=== PATIENT | female | born 1945 | race Caucasian/White ===

== ENCOUNTER 2019-12-10 18:00 | Emergency (ER) | payer MEDICARE ==
[~2019-12-10] VITALS: Ht 165.1 cm; Wt 61.3 kg
[~2019-12-10 18:00] MED LIST: AMOX125S17 PO; CHOL400C PO; FENO43CA5 PO; GLUC1CAP57 PO; HYDR-3164 PO; METH4TAB6 PO; OXYC1TAB19 PO; PRED20TA PO; PYRI25TA2 PO
[2019-12-10 18:48] LABS: BILIRUBIN,URINE NEGATIVE (NEG); CLARITY,URINE CLEAR; COLOR,URINE YELLOW; NITRITE,URINE NEGATIVE (NEG); PROTEIN,URINE NEGATIVE (NEG-TRACE); UROBILINOGEN,URINE 0.2 mg/dL (0.2 mg/dL)
[2019-12-10 18:53] LABS: HYALINE CASTS, URINE FEW /HPF
[2019-12-10 18:56] LABS: RBC,URINE 0 /HPF (0-2); WBC,URINE 0 /HPF (0-4)
[2019-12-10 18:57] LABS: BACTERIA,URINE FEW /HPF (0-FEW)
[2019-12-10 19:08] LABS: BASO # 0.1 x10^3/uL (0.0-0.2); BASO % 1 % (0-3); EOS # 0.3 x10^3/uL (0.0-0.7); EOS % 5 % (0-3); HEMATOCRIT 45.1 % (36.0-47.0); HEMOGLOBIN 15.5 g/dL (12.0-15.5); LYMPH # 1.1 x10^3/uL (1.0-4.8); LYMPH % 16 % (24-48); MEAN CORPUSCULAR HEMOGLOBIN 32 pg (25-35); MEAN CORPUSCULAR HGB CONC 34 g/dL (31-37); MEAN CORPUSCULAR VOLUME 93 fL (79-100); MONO # 0.8 x10^3/uL (0.0-1.1); MONO % 11 % (0-9); NEUT # 4.8 x10^3/uL (1.8-7.7); NEUT % 68 % (31-73); PLATELET COUNT 540 x10^3/uL (140-400); RED BLOOD COUNT 4.83 x10^6/uL (3.50-5.40); RED CELL DISTRIBUTION WIDTH 13.2 % (11.5-14.5); WHITE BLOOD COUNT 7.1 x10^3/uL (4.0-11.0)
[2019-12-10 19:16] LABS: CALCIUM 9.4 mg/dL (8.5-10.1); CREATININE 0.7 mg/dL (0.6-1.0); POTASSIUM 3.7 mmol/L (3.5-5.1)
[2019-12-10 19:18] LABS: PROTHROMBIN TIME PATIENT 13.4 SEC (11.7-14.0)
[2019-12-10 19:22] LABS: ALBUMIN 3.1 g/dL (3.4-5.0); DIRECT BILIRUBIN 0.1 mg/dL (0.0-0.2); TOTAL BILIRUBIN 0.3 mg/dL (0.2-1.0); TOTAL PROTEIN 5.9 g/dL (6.4-8.2)
[2019-12-10] MEDS ORDERED: IOHEXOL 300 MG/ML 100ML VIAL. IV ONE (19:30)
[2019-12-10 19:32] LABS: % BANDS 3 % (0-9); % EOS 5 % (0-5); % LYMPHS 21 % (24-48); % MONOS 9 % (0-10); % SEGS 62 % (35-66); PLT ESTIMATE INCREASED (ADEQUATE); TOXIC GRANULATION MOD
[2019-12-10] MEDS ORDERED: CONTRAST GIVEN. MC PRN (19:45)
--- NOTE | 2019-12-10 19:48 | RAD ---
Study: CR PORTABLE CHEST 1V Indication: Chest tightness. Comparison: 04/01/2015 Findings: The cardiomediastinal silhouette is within normal limits for size. Aortic vascular calcifications. Unremarkable [place]. No pneumothorax, lobar consolidation or layering effusion. Chronic rib fractures seen on the left. Osteopenia and scattered degenerative changes. Impression: No acute radiographic abnormality of the chest. Electronically signed by: MARY VALVERDE MD (12/10/2019 7:45 PM) [id number]
--- NOTE | 2019-12-10 19:53 | RAD ---
PQRS Compliance Statement: One or more of the following individualized dose reduction techniques were utilized for this examination: 1. Automated exposure control 2. Adjustment of the mA and/or kV according to patient size 3. Use of iterative reconstruction technique CT ABD PELV W/ IV CONTRST ONLY Clinical Indication: Reason: back pain and abd pain / Spl. Instructions: / History: Comparison: CT abdomen and pelvis with contrast October 19, 2018. Technique: Helical CT imaging of the abdomen and pelvis is performed after 75 cc of Omnipaque 300 IV contrast. Oral contrast not administered. Findings: Stable 5 mm nodule in the right lower lobe, therefore considered benign. Linear scarring in the posterior right lower lobe and lingula, unchanged. Cardiac size normal. The liver, gallbladder, spleen, adrenal glands, abdominal aorta caliber, and kidneys are normal. There is moderate inflammation and fluid surrounding the pancreas. Some of this process is seen inferior to the pancreas body/head junction. This process also extends cephalad to the periceliac region. No organized fluid collection is seen. The pancreas is homogeneous. No obvious abnormality of the stomach. Periumbilical ventral hernia mesh. No dilated small bowel. There is no colon wall thickening. The appendix is normal. There is tiny metallic density adjacent to the proximal colon, likely incidental. Urinary bladder is not well distended, otherwise normal. The uterus is atrophic. Prominent enhancing left gonadal vein, similar to prior study. No pelvic free fluid. Small fat-containing left inguinal hernia. No acute bone abnormality. IMPRESSION: Moderate acute pancreatitis. No pancreatic pseudocyst or evidence of necrosis. Electronically signed by: Marcellus Keller MD (12/10/2019 7:50 PM) [facility]
[2019-12-10] MEDS ORDERED: IV NORMAL SALINE 1000ML BAG 1,000 ML IV ONE ×2 (20:00→21:30)
--- NOTE | 2019-12-10 20:11 | PHYS DOC ---
Past Medical History Past Medical History: High Cholesterol, Hypertension, Pancreatitis Past Surgical History: Tubal ligation Smoking Status: Current Every Day Smoker Alcohol Use: Heavy Additional Information: sober for 1 week. Drug Use: None General Adult EDM: Chief Complaint: MULTIPLE COMPLAINTS HPI: HPI: 74-year-old female past medical history of tobacco dependence, HLD, and HTN , presents to the ED after nurse from Dr. Gutierrez's office referred her here for "a second test." Patient states she saw Dr. Gutierrez on Sunday with complaints of left-sided chest tightness, belly, stomach and back pain that she has been experiencing for the past 2 weeks. No relief with ice packs. Patient states she gave a urine sample - cannot recall any further labs or imaging studies, pt is a very poor historian. States she takes medications but doesn't know what for. Reports chronic history of alcohol abuse daily. Complains of no appetite and constipation. Had a bowel movement on Sunday that was normal brown color. Review of Systems: Review of Systems: Constitutional: Denies fever or chills. [] Eyes: Denies change in visual acuity. [] HENT: Denies nasal congestion or sore throat. [] Respiratory: Denies cough or shortness of breath. [] Or hematuria Cardiovascular: Denies syncope or edema. [] GI: Denies melena, hematochezia, hematemesis, nausea, vomiting, bloody stools or diarrhea. [] : Denies dysuria. [] Or hematuria Musculoskeletal: Denies saddle anesthesia or joint pain. [] Integument: Denies rash. [] Neurologic: Denies headache, focal weakness or sensory changes. [] Endocrine: Denies polyuria or polydipsia. [] Lymphatic: Denies swollen glands. [] Psychiatric: Denies depression or anxiety. [] Heart Score: Risk Factors: Risk Factors: DM, Current or recent (<one month) smoker, HTN, HLP, family histo ry of CAD, obesity. Risk Scores: Score 0 - 3: 2.5% MACE over next 6 weeks - Discharge Home Score 4 - 6: 20.3% MACE over next 6 weeks - Admit for Clinical Observation Score 7 - 10: 72.7% MACE over next 6 weeks - Early Invasive Strategies Current Medications: Current Medications Medications (Trade) Dose Ordered Sig/Libby Start Time Stop Time Status Last Admin Dose Admin Info (CONTRAST GIVEN -- Rx MONITORING) 1 each PRN DAILY PRN 12/10/19 19:45 12/12/19 19:44 Iohexol (Omnipaque 300 Mg/ml) 75 ml 1X ONCE 12/10/19 19:30 12/10/19 19:31 DC 12/10/19 19:30 75 ML Sodium Chloride 1,000 ml @ 1,000 mls/hr 1X ONCE 12/10/19 20:00 12/10/19 20:59 12/10/19 19:55 1,000 MLS/HR Allergies: Allergies: Allergies Coded Allergies Type Severity Reaction Last Updated Verified No Known Drug Allergies 01/22/16 No Physical Exam: PE: Constitutional: Well developed, well nourished, no acute distress, non-toxic appearance. [] HENT: Normocephalic, atraumatic, bilateral external ears normal, oropharynx moist, no oral exudates, nose normal. [] Eyes: , EOMI, conjunctiva normal, no discharge. [] Neck: Normal range of motion, no tenderness, supple, no stridor. [] Cardiovascular:Heart rate regular rhythm, no murmur [] Lungs & Thorax: Bilateral breath sounds clear to auscultation [] Abdomen: +eigastric ttp, Bowel sounds normal, soft, no masses, no pulsatile mas ses. [] Skin: Warm, dry, no erythema, no rash. [] Back: No tenderness, Extremities: No tenderness, no cyanosis, no clubbing, ROM intact, no edema. [] Neurologic: Alert and oriented X 3, normal motor function, normal sensory function, no focal deficits noted. [] Psychologic: Affect normal, judgement normal, mood normal. [] Current Patient Data: Labs: Laboratory Tests Test 12/10/19 18:17 12/10/19 18:57 Urine Collection Type Unknown Urine Color Yellow Urine Clarity Clear Urine pH 6.0 (<5.0-8.0) Urine Specific [place] 1.025 (1.000-1.030) Urine Protein Negative mg/dL (NEG-TRACE) Urine Glucose (UA) Negative mg/dL (NEG) Urine Ketones (Stick) Negative mg/dL (NEG) Urine Blood Negative (NEG) Urine Nitrite Negative (NEG) Urine Bilirubin Negative (NEG) Urine Urobilinogen Dipstick 0.2 mg/dL (0.2 mg/dL) Urine Leukocyte Esterase Negative (NEG) Urine RBC 0 /HPF (0-2) Urine WBC 0 /HPF (0-4) Urine Squamous Epithelial Cells Mod /LPF Urine Bacteria Few /HPF (0-FEW) Urine Hyaline Casts Few /HPF Urine Mucus Marked /LPF White Blood Count 7.1 x10^3/uL (4.0-11.0) Red Blood Count 4.83 x10^6/uL (3.50-5.40) Hemoglobin 15.5 g/dL (12.0-15.5) Hematocrit 45.1 % (36.0-47.0) Mean Corpuscular Volume 93 fL (79-100) Mean Corpuscular Hemoglobin 32 pg (25-35) Mean Corpuscular Hemoglobin Concent 34 g/dL (31-37) Red Cell Distribution Width 13.2 % (11.5-14.5) Platelet Count 540 x10^3/uL (140-400) H Neutrophils (%) (Auto) 68 % (31-73) Lymphocytes (%) (Auto) 16 % (24-48) L Monocytes (%) (Auto) 11 % (0-9) H Eosinophils (%) (Auto) 5 % (0-3) H Basophils (%) (Auto) 1 % (0-3) Neutrophils # (Auto) 4.8 x10^3/uL (1.8-7.7) Lymphocytes # (Auto) 1.1 x10^3/uL (1.0-4.8) Monocytes # (Auto) 0.8 x10^3/uL (0.0-1.1) Eosinophils # (Auto) 0.3 x10^3/uL (0.0-0.7) Basophils # (Auto) 0.1 x10^3/uL (0.0-0.2) Segmented Neutrophils % 62 % (35-66) Band Neutrophils % 3 % (0-9) Lymphocytes % 21 % (24-48) L Monocytes % 9 % (0-10) Eosinophils % 5 % (0-5) Toxic Granulation Mod Platelet Estimate Increased (ADEQUATE) Prothrombin Time 13.4 SEC (11.7-14.0) Prothrombin Time INR 1.1 (0.8-1.1) Activated Partial Thromboplast Time 27 SEC (24-38) Sodium Level 138 mmol/L (136-145) Potassium Level 3.7 mmol/L (3.5-5.1) Chloride Level 97 mmol/L (98-107) L Carbon Dioxide Level 33 mmol/L (21-32) H Anion Gap 8 (6-14) Blood Urea Nitrogen 10 mg/dL (7-20) Creatinine 0.7 mg/dL (0.6-1.0) Estimated GFR (Cockcroft-Gault) 82.0 Glucose Level 108 mg/dL (70-99) H Calcium Level 9.4 mg/dL (8.5-10.1) Total Bilirubin 0.3 mg/dL (0.2-1.0) Direct Bilirubin 0.1 mg/dL (0.0-0.2) Aspartate Amino Transferase (AST) 27 U/L (15-37) Alanine Aminotransferase (ALT) 14 U/L (14-59) Alkaline Phosphatase 63 U/L (46-116) Creatine Kinase 112 U/L (26-192) Troponin I Quantitative < 0.017 ng/mL (0.000-0.055) Total Protein 5.9 g/dL (6.4-8.2) L Albumin 3.1 g/dL (3.4-5.0) L Lipase 330 U/L (73-393) Ethyl Alcohol Level < 10 mg/dL (0-10) Laboratory Tests 12/10/19 18:57 Laboratory Tests 12/10/19 18:57 Vital Signs: Vital Signs Date Time Temp Pulse Resp B/P (MAP) Pulse Ox O2 Delivery O2 Flow Rate FiO2 12/10/19 18:15 98.3 83 16 138/73 (94) 96 Room Air 98.3 EKG: EKG: Sinus rhythm 81 bpm, left axis deviation, normal intervals, no T wave inversions, no ST elevations or ST depressions Radiology/Procedures: Radiology/Procedures: [] IMAGING REPORT Signed PATIENT: EZEQUIEL JOHNSON ACCOUNT: [id number] : 1945 LOCATION: ER AGE: 74 SEX: F EXAM STATUS: REG ER ORD. PHYSICIAN: ANNIKA YODER DO REASON: chest tightness PROCEDURE: PORTABLE CHEST 1V Study: CR PORTABLE CHEST 1V Indication: Chest tightness. Comparison: 04/01/2015 Findings: The cardiomediastinal silhouette is within normal limits for size. Aortic vascular calcifications. Unremarkable [place]. No pneumothorax, lobar consolidation or layering effusion. Chronic rib fractures seen on the left. Osteopenia and scattered degenerative changes. Impression: No acute radiographic abnormality of the chest. Electronically signed by: MARY VALVERDE MD (12/10/2019 7:45 PM) [id number] DICTATED and SIGNED BY: MARY VALVERDE MD DATE: 12/10/191944 IMAGING REPORT Signed PATIENT: EZEQUIEL JOHNSON ACCOUNT: [id number] : 1945 LOCATION: ER AGE: 74 SEX: F EXAM STATUS: REG ER ORD. PHYSICIAN: ANNIKA YODER DO REASON: back pain and abd pain PROCEDURE: CT ABD PELV W/ IV CONTRST ONLY PQRS Compliance Statement: One or more of the following individualized dose reduction techniques were utilized for this examination: 1. Automated exposure control 2. Adjustment of the mA and/or kV according to patient size 3. Use of iterative reconstruction technique CT ABD PELV W/ IV CONTRST ONLY Clinical Indication: Reason: back pain and abd pain / Spl. Instructions: / History: Comparison: CT abdomen and pelvis with contrast October 19, 2018. Technique: Helical CT imaging of the abdomen and pelvis is performed after 75 cc of Omnipaque 300 IV contrast. Oral contrast not administered. Findings: Stable 5 mm nodule in the right lower lobe, therefore considered benign. Linear scarring in the posterior right lower lobe and lingula, unchanged. Cardiac size normal. The liver, gallbladder, spleen, adrenal glands, abdominal aorta caliber, and kidneys are normal. There is moderate inflammation and fluid surrounding the pancreas. Some of this process is seen inferior to the pancreas body/head junction. This process also extends cephalad to the periceliac region. No organized fluid collection is seen. The pancreas is homogeneous. No obvious abnormality of the stomach. Periumbilical ventral hernia mesh. No dilated small bowel. There is no colon wall thickening. The appendix is normal. There is tiny metallic density adjacent to the proximal colon, likely incidental. Urinary bladder is not well distended, otherwise normal. The uterus is atrophic. Prominent enhancing left gonadal vein, similar to prior study. No pelvic free fluid. Small fat-containing left inguinal hernia. No acute bone abnormality. IMPRESSION: Moderate acute pancreatitis. No pancreatic pseudocyst or evidence of necrosis. Electronically signed by: Marco A Keller MD (12/10/2019 7:50 PM) [facility] DICTATED and SIGNED BY: MARCO A KELLER MD DATE: 12/10/191949 Course & Med Decision Making: Course & Med Decision Making Pertinent Labs and Imaging studies reviewed. (See chart for details) D/w Dr. Gutierrez -was concerned for acute abdomen on sunday and referred pt to ed. Pt was treated empirically for diverticulitis with levaquin and augmentin. CT concerning for moderate acute pancreatitis, lipase is within normal limits. Gallbladder normal. U/a contaminated. Patient afebrile, no leukocytosis. Pt does complain of anorexia. I strongly encouraged admission for IVFs and analgesia until pain resolved. Pt aware pancreatitis is deadly but despite life/limb threatening risks, refuses to be admitted because she cares for her who has dementia and has no one who could help take care of him. Pt has [facility]. Pt was given strict ed return instructions and advised to abstain from alcohol abuse. Encouraged to return to ed immediately. The patient has decided to leave our facility against medical advice. I have assessed patient's ability to make informed decision and feel the patient has the capacity to comprehend information regarding the current medical condition and appreciates the impact of the disease or condition and the consequences of various options for treatment, including foregoing treatment. The patient possesses the ability to evaluate all treatment options, comparing the risks and benefits of each option, communicate his or her choice in a consistent manner over time, and is able to make rational choices. I explained to the patient further testing, treatment, and evaluation I would like to perform in the emergency department visit as well as any possible alternatives that can be accomplished in a timely manner. I have outlined the possible risks of forego ing any or all of these interventions and the patient understands and acknowledges that the decision to leave may result in undesirable consequences such as , permanent disability, and/or loss of current lifestyle. Even though leaving AMA is not ideal, I have instructed the patient to follow any discharge instructions given, take any medications prescribed, and resume care as soon as possible with another provider. This conversation was witnessed by another member of the emergency department staff and we clearly communicated the patient is welcome to return anytime to continue care at our facility. Laurie Disclaimer: Laurie Disclaimer: This electronic medical record was generated, in whole or in part, using a voice recognition dictation system. Departure Departure Impression: Primary Impression: Acute pancreatitis Additional Impression: Alcohol abuse Disposition: 07 AGAINST MEDICAL ADVICE Condition: GUARDED Referrals: DELORIS GUTIERREZ MD (PCP) Patient Instructions: Acute Pancreatitis, Alcohol Problems, Discharge Against Medical Advice Additional Instructions: Jaziel Cedillo MD-in 1-2 weeks Primary Specialties Gastroenterology [facility] Address: [address] [place] [address] EMERGENCY DEPARTMENT GENERAL DISCHARGE INSTRUCTIONS Thank you for coming to [facility] Emergency Department (ED) today and trusting us with you care. We trust that you had a positive experience in our Emergency Department. If you wish to speak to the department management, you may call the Director at [phone]. YOUR FOLLOW UP INSTRUCTIONS ARE FOLLOWS: 1. Do you have a private Doctor? If you do not have a private doctor, please ask for a resource list of physicians or clinics that may be able to assist you with follow up care. 2. The Emergency Physicain has interpreted your x-rays. The X-Ray specialist will also review them. If there is a change in the findings, you will be notified in 48 hours when at all possible. 3. A lab test or culture has been done, your results will be reviewed and you will be notified if you need a change in treatment. ADDITIONAL INSTRUCTIONS AND INFORMATION: 1. Your care today has been supervised by a physician who is specially trained in emergency care. Many problems require more than one evaluation for a complete diagnosis and treatment. We recommend that you schedule your follow up appointment as recomme nded to ensure complete treatment of you illness or injury. If you are unable to obtain follow up care and continue to have a problem, or if your condition worsens, we recommend that you return to the ED. 2. We are not able to safely determine your condition over the phone nor are we able to give sound medical advice over the phone. For these safety reasons, if you call for medical advice we will ask you to come to the ED for further evaluation. 3. If you have any questions regarding these discharge instructions please call the ED at [phone]. SAFETY INFORMATION: In the interest of safety, wellness, and injury prevention; we encourage you to wear your sealbelt, if you smoke; quite smoking, and we encourage family to use a protective helmet for bicycling and other sporting events that present an increased risk for head injury. IF YOUR SYMPTOMS WORSEN OR NEW SYMPTOMS DEVELOP, OR YOU HAVE CONCERNS ABOUT YOUR CONDITION; OR IF YOUR CONDITION WORSENS WHILE YOU ARE WAITING FOR YOUR FOLLOW UP APPOINTMENT; EITHER CONTACT YOUR PRIMARY CARE DOCTOR, THE PHYSICIAN WHOSE NAME AND NUMBER YOU WERE GIVEN, OR RETURN TO THE ED IMMEDIATELY. Scripts Ondansetron Hcl (ZOFRAN) 4 Mg Tablet 1 TAB PO PRN Q6-8HRS, #15 TAB Prov: ANNIKA YODER DO 12/10/19 Justicifation of Admission Dx: Justifications for Admission: Justification of Admission Dx: N/A ANNIKA YODER DO Dec 10, 2019 20:11
[2019-12-10 20:37] VITALS: BP 125/66
[2019-12-10 20:56] LABS: BARBITURATES NEG (NEG); BENZODIAZEPINES NEG (NEG); CANNABINOIDS NEG (NEG); COCAINE NEG (NEG); METHADONE NEG (NEG); OPIATES POS (NEG); PHENCYCLIDINE NEG (NEG)
[2019-12-10 20:59] LABS: AMPHETAMINE/METHAMPHETAMINE NEG (NEG)
[2019-12-10] MEDS ORDERED: ONDA4TAB7 PO (21:30)
--- NOTE | 2019-12-11 06:07 | EKG ---
[facility] [address] [place] [address] Test Date: 2019-12-10 Test Time: 18:25:36 Pat Name: EZEQUIEL JOHNSON Department: Room: Gender: F Hose Tender: [place] : 1945 Requested By: ANNIKA YODER Order Number: [id number] Reading MD: Jony Varner Measurements Intervals [place] Rate: 81 P: 62 [place]: 152 QRS: -14 QRSD: 74 T: 56 QT: 368 QTc: 433 Interpretive Statements SINUS RHYTHM LEFTWARD AXIS Electronically Signed On 12-17-2019 13:03:24 CDT by Jony Varner
== END 2019-12-10 21:22 | disposition left against medical advice (07) ==
LOC: ER 18:00
DX: K85.90 Acute pancreatitis without necrosis or infection, unspecified (principal); R07.89 Other chest pain; E78.00 Pure hypercholesterolemia, unspecified; I10 Essential (primary) hypertension; F17.200 Nicotine dependence, unspecified, uncomplicated; F10.20 Alcohol dependence, uncomplicated; E78.5 Hyperlipidemia, unspecified; Z98.51 Tubal ligation status; Y90.0 Blood alcohol level of less than 20 mg/100 ml
CPT/HCPCS: 36415; 71045; 74177; 80048; 80076; 80307; 81001; 82550; 83690; 84484; 85007; 85025; 85610; 85730; 93005; 96360; 99285; G0480; J7030; Q9967

== ENCOUNTER → 2021-04-11 | Outpatient (CLI) | payer MEDICARE ==
[~2021-04-11] MED LIST changes: +ONDA4TAB7 PO
--- NOTE | 2021-04-11 15:51 | KCIC ---
Bilateral digital screening mammograms: Reason for examination: Routine screening. Comparison is made to previous studies dated 01/30/2011 and 12/13/2010. Interpretation was made with the benefit of CAD. The skin and nipples show no abnormalities. No abnormal axillary lymph nodes are seen. The breast par enchyma shows scattered fibroglandular density. (Breast density: Category B.) There appear to be some excisional biopsy changes in the right breast. There are no new dominant masses, suspicious calcific ations or architectural distortions. Impression: No evidence of malignancy. Recommend routine screening. BI-RADS Category 2: Benign. "Our facility is accredited by the [employer] Mammography Program." This patient's information has been entered into a reminder system for the patient to be notified wit h the results of her examination and a target date for the next mammogram. Electronically signed by: Lissette Valencia MD (04/11/2021 3:49 PM) [id number]
== END ==
LOC: KCIC MAMMO 12:39
PROVIDERS: ATTEND Family Medicine
DX: Z12.31 Encounter for screening mammogram for malignant neoplasm of breast (principal)
CPT/HCPCS: 77067

== ENCOUNTER → 2021-04-18 | Outpatient (CLI) | payer MEDICARE, OTHER ==
--- NOTE | 2021-04-18 15:58 | RAD ---
LOWER EXTREMITY DUPLEX ARTERY ULTRASOUND Indication: claudication Comparison: None. Procedure: Arterial 2D and duplex images are obtained of the lower extremity arteries. Findings: No evidence of high-grade stenosis, occlusion, or aneurysm is seen. Essentially normal wave forms and velocities are present throughout the bilateral common femoral, superficial femoral, poplit eal, anterior tibial, posterior tibial, and dorsalis pedis arteries. IMPRESSION: No sonographic evidence of hemodynamically significant stenosis involving the major arter ies of either lower extremity Electronically signed by: Aston Kim MD (04/18/2021 3:56 PM) [id number]
--- NOTE | 2021-04-18 16:47 | RAD ---
EXAM: CT CHEST WITHOUT [id number] LUNG SCREENING HISTORY: Lung cancer screening, tobacco use. Smoker for 45 years, left one today. COMPARISON: None TECHNIQUE: Helical CT of the chest performed without contrast per low-dose lung screening protocol. Coronal and sagittal reformats were obtained. One or more of the following individualized dose reduction techniques were utilized for this examinat ion: 1. Automated exposure control 2. Adjustment of the mA and/or kV according to patient size 3. Use of iterative reconstruction technique. FINDINGS: Pulmonary nodules: Multiple small solid noncalcified pulmonary nodules includin mm nodule in the right lower lobe (image 25). 3 mm nodule in the right lower lobe (211). 3 mm nodule in the left upper lobe (image 25). 5 mm subpleural nodule in the lingula (image 232). 3 mm nodule in the left lower lo be (image 188). Other: There is mild diffuse airway wall thickening. Linear opacities in the inferior right lower lob e may be scarring or atelectasis. No pleural effusion. The heart is normal in size. There are no karen nary artery calcifications. The thoracic aorta is normal in caliber. Mild scattered calcified aortic atherosclerosis. Small AP window lymph nodes measuring up to 6 cm short axis, likely reactive. No hil ar or axillary lymphadenopathy. Limited visualization of the upper abdomen is unremarkable. Mild dege nerative disc disease thoracic spine. Old manubrium fracture. IMPRESSION: Multiple small bilateral pulmonary nodules measuring up to 4 mm. Lung-RADS category 2-Benign appearance or behavior. Recommend continued annual screening with low-dos e CT in 12 months. Electronically signed by: Nadia Liu MD (04/18/2021 4:44 PM) [id number]
== END ==
LOC: US 14:28
PROVIDERS: ATTEND Family Medicine
DX: S22.21XD Fracture of manubrium, subsequent encounter for fracture with routine healing (principal); R91.8 Other nonspecific abnormal finding of lung field; M47.814 Spondylosis without myelopathy or radiculopathy, thoracic region; I73.9 Peripheral vascular disease, unspecified; I70.0 Atherosclerosis of aorta; F17.210 Nicotine dependence, cigarettes, uncomplicated; X58.XXXD Exposure to other specified factors, subsequent encounter
CPT/HCPCS: 71271; 93925